=== PATIENT | male | born 1940 | race Caucasian/White ===

== ENCOUNTER → 2016-12-28 | Outpatient (REF) ==
[~2016-12-28] MED LIST: AMBIEN 10MG10 M1 PO; AMBIEN 10MG10 MG PO; AMBIEN10 MG PO; ASPIRIN 81M81 MG/TA2 PO; ASPIRIN E.C. 8181 MG PO; ATROVENTNS0.03% NS; DETROL LA4 PO; EYE DROP ADVANC15 ML OP; FISH OIL PO; FLOMAX 0.40.4 MG/CAP PO; GLUCOPHAGE500 MG/TAB PO; METFORMIN500 MG PO; MULTI VITAMINS1 TAB PO; MVI PO; NEURONTIN100 MG/CAP PO; NEURONTIN300 MG/CAP PO; PRILOSEC 20MG20 MG PO; TYLENOL 500MG500 MG PO; TYLENOL ARTHRITIS PO; ZESTRIL 10MG10 MG PO; ZESTRIL10 MG PO; ZOCOR 20MG20 MG PO
[2016-12-28 11:25] LABS: THYROID STIMULATING HORMONE 1.54 uIU/mL (0.465-4.680)
[2016-12-28 11:52] LABS: PSA-TOTAL 1.48 ng/mL (0-4)
== END ==
LOC: ZLAB.WCH 10:14
PROVIDERS: Medical Genetics Clinical Genetics (M.D.)
DX: Z01.89 Encounter for other specified special examinations (principal)
CPT/HCPCS: G0103

== ENCOUNTER 2017-06-06 09:04 | Observation (INO) | payer MEDICARE, OTHER ==
[2017-06-06] VITALS (8 sets, daily range): BP systolic 91–144; BP diastolic 28–86; PULSE 76–113; TEMP 97.3–99
[~2017-06-06] VITALS: Ht 175.3 cm; Wt 114.7 kg
[~2017-06-06 09:04] MED LIST changes: -AMBIEN 10MG10 MG PO; -ASPIRIN 81M81 MG/TA2 PO; -ATROVENTNS0.03% NS; -EYE DROP ADVANC15 ML OP; -FLOMAX 0.40.4 MG/CAP PO; -GLUCOPHAGE500 MG/TAB PO; -MULTI VITAMINS1 TAB PO; -NEURONTIN300 MG/CAP PO; -ZESTRIL 10MG10 MG PO
[2017-06-06] MEDS ORDERED: AMBIEN 10MG10 MG PO (10:12)
[2017-06-06] MEDS ORDERED: GLUCOPHAGE500 MG/TAB PO (10:12)
[2017-06-06] MEDS ORDERED: TYLENOL 500MG500 MG PO (10:13)
[2017-06-06] MEDS ORDERED: MULTI VITAMINS1 TAB PO (10:14)
[2017-06-06] MEDS ORDERED: EYE DROP ADVANC15 ML OP (10:15)
[2017-06-06] MEDS ORDERED: ASPIRIN 81M81 MG/TA2 PO (10:16)
[2017-06-06] MEDS ORDERED: ZOCOR 20MG20 MG PO (10:16)
[2017-06-06] MEDS ORDERED: PRILOSEC 20MG20 MG PO (10:16)
[2017-06-06] MEDS ORDERED: ZESTRIL 10MG10 MG PO (10:17)
[2017-06-06] MEDS ORDERED: NEURONTIN300 MG/CAP PO ×2 (10:18)
[2017-06-06] MEDS ORDERED: FLOMAX 0.40.4 MG/CAP PO (10:19)
[2017-06-06] MEDS ORDERED: ATROVENTNS0.03% NS (10:20)
[2017-06-07 02:14] VITALS: BP 126/80; PULSE 83; TEMP 98.1
[2017-06-07 05:22] VITALS: BP 104/65; PULSE 88; TEMP 98.9
[2017-06-07 07:12] LABS: HEMOGLOBIN 12.4 g/dl (13.5-18.0); MEAN CELL VOLUME 101 fl (80.0-100.0); MEAN CORPUSCULAR HEMOGLOBIN 35 pg (27.0-31.0); MEAN CORPUSCULAR HGB CONC 34 g/dl (33.0-37.0); MEAN PLATELET VOLUME 9.4 fl (7.4-10.4); PLATELET COUNT 193 K/mm3 (130-400); RED BLOOD COUNT 3.58 M/mm3 (4.20-5.60); REDCELL DISTRIBUTION WIDTH-CV 13.1 % (11.5-14.5); WHITE BLOOD COUNT 13.6 K/mm3 (4.8-10.8)
[2017-06-07 07:14] LABS: HEMATOCRIT 36.2 % (42.0-52.0)
[2017-06-07 10:12] VITALS: BP 103/58; PULSE 87; TEMP 98.1
[2017-06-07 14:31] VITALS: BP 93/76; PULSE 92; TEMP 97.9
[2017-06-07 18:42] VITALS: BP 84/65; PULSE 84; TEMP 99
[2017-06-07 21:20] VITALS: BP 120/53; BP 96/33; PULSE 72; PULSE 86; TEMP 98.6; TEMP 98.7
[2017-06-08 01:46] VITALS: BP 115/65; PULSE 66; TEMP 98.8
[2017-06-08 05:42] VITALS: BP 113/53; PULSE 64; TEMP 98.5
[2017-06-08 10:21] VITALS: BP 117/73; PULSE 80; TEMP 97.8
[2017-06-08 13:24] VITALS: BP 130/71; PULSE 92; TEMP 98.1
== END 2017-06-08 14:00 | disposition home or self-care (01) ==
LOC: SDCO 09:04 → SURG 15:35 → SDCO 06-07 13:00 → SURG 06-07 13:00
PROVIDERS: Urology
DX: N40.1 Benign prostatic hyperplasia with lower urinary tract symptoms (principal); R33.8 Other retention of urine; N32.81 Overactive bladder; K21.9 Gastro-esophageal reflux disease without esophagitis; E78.5 Hyperlipidemia, unspecified; E11.40 Type 2 diabetes mellitus with diabetic neuropathy, unspecified; I10 Essential (primary) hypertension; Z87.891 Personal history of nicotine dependence
CPT/HCPCS: OP; G0378; J0690; J2250; J2370; J2405; J2704; J3010; J3480; J7120

== ENCOUNTER → 2018-02-01 | Outpatient (REF) ==
[~2018-02-01] MED LIST changes: +AMBIEN 10MG10 MG PO; +ASPIRIN 81M81 MG/TA2 PO; +ATROVENTNS0.03% NS; +EYE DROP ADVANC15 ML OP; +FLOMAX 0.40.4 MG/CAP PO; +GLUCOPHAGE500 MG/TAB PO; +MULTI VITAMINS1 TAB PO; +NEURONTIN300 MG/CAP PO; +ZESTRIL 10MG10 MG PO
[2018-02-01 19:03] LABS: PSA-TOTAL 0.33 ng/mL (0-4)
[2018-02-01 19:17] LABS: THYROID STIMULATING HORMONE 0.526 uIU/mL (0.465-4.680)
== END ==
LOC: ZLAB.WCH 17:49
PROVIDERS: Family Medicine
DX: Z01.89 Encounter for other specified special examinations (principal)
CPT/HCPCS: G0103

== ENCOUNTER → 2019-02-01 | Outpatient (REF) ==
[2019-02-01 17:57] LABS: THYROID STIMULATING HORMONE 0.253 uIU/mL (0.465-4.680)
[2019-02-01 18:51] LABS: PSA-TOTAL 0.27 ng/mL (0-4)
== END ==
LOC: ZLAB.WCH 17:11
PROVIDERS: Family Medicine
DX: Z01.89 Encounter for other specified special examinations (principal)
CPT/HCPCS: G0103